=== PATIENT | female | born 1990 | race Caucasian/White ===

== ENCOUNTER 2017-05-07 10:39 | Observation (INO) | payer BC, MEDICAID ==
[~2017-05-07] VITALS: Ht 149.9 cm; Wt 81.6 kg
[2017-05-07 12:38] VITALS: BP_SYST 121
[2017-05-07 12:40] VITALS: BP_SYST 121
== END 2017-05-07 12:20 | disposition home or self-care (01) ==
LOC: SPU 10:39
PROVIDERS: ADMIT Specialist; ATTEND Specialist
DX: O26.893 Other specified pregnancy related conditions, third trimester (principal); N89.8 Other specified noninflammatory disorders of vagina; R10.30 Lower abdominal pain, unspecified; Z3A.35 35 weeks gestation of pregnancy
CPT/HCPCS: 76815; G0378; 81002-TC

== ENCOUNTER 2017-05-20 10:55 | Inpatient (IN) | payer BC, MEDICAID ==
[~2017-05-20] VITALS: Ht 149.9 cm; Wt 85.7 kg
[2017-05-20] MEDS ORDERED: LR 1,000 ML IV SCH (12:29)
[2017-05-20] MEDS ORDERED: OXYTOCIN/NORMAL SALINE 1,000 ML IV SCH ×2 (12:29→21:02)
[2017-05-20] MEDS ORDERED: OXYTOCIN/NORMAL SALINE 1,000 ML IV ONE ×2 (13:00→21:02)
[2017-05-20 13:03] LABS: HEMATOCRIT 32.7 % (36-48); HEMOGLOBIN 10.7 g/dL (12.0-16.0); MEAN CORPUSCULAR HEMOGLOBIN 25 pg (27-31); MEAN CORPUSCULAR HGB CONC 33 % (32-36); MEAN CORPUSCULAR VOLUME 76 fL (79.0-98.0); PLATELET COUNT (AUTO) 162 K/uL (130-430); RED BLOOD CELL COUNT(AUTO) 4.33 MIL/uL (4.2-6.2); RED CELL DISTRIBUTION WIDTH 13.6 % (9.0-15.0)
[2017-05-20 13:05] VITALS: BP_SYST 146
[2017-05-20 13:10] LABS: WHITE BLOOD COUNT (AUTO) 10.6 K/uL (4.8-10.8)
[2017-05-20 13:28] LABS: ATYPICAL LYMPHOCYTES % 0 % (0-0); BAND % (MANUAL) 0 % (0-6); BASOPHILS % (MANUAL) 1 % (0-2); EOSINOPHILS % (MANUAL) 0 % (0-7); LYMPHOCYTES % (MANUAL) 22 % (20-46); MONOCYTES % (MANUAL) 6 % (0-11)
[2017-05-20] MEDS: NALBUPHINE HCL 10 MG/ML AMP IVP PRN ×2 (15:01→17:12)
[2017-05-20] MEDS: OXYCODONE/ACETAMINOPHEN 5-325 TABLET PO PRN (20:05)
[2017-05-20] MEDS ORDERED: OXYCODONE/ACETAMINOPHEN 5-325 TABLET ONE ×2 (20:12→20:17)
[2017-05-20] MEDS ORDERED: TEMAZEPAM 15 MG CAPSULE PO PRN (21:00)
[2017-05-20] MEDS ORDERED: DERMOPLAST SPRAY TP PRN (21:15)
[2017-05-20] MEDS ORDERED: SENNOSIDES/DOCUSATE SODIUM 1 TAB TABLET(SENOKOT-S) PO PRN (21:15)
[2017-05-20] MEDS ORDERED: HYDROCORTISONE 0.5%, 28.35 GM TOPICAL CREAM TP PRN (21:15)
[2017-05-20] MEDS ORDERED: LANOLIN 7 GM OINT. TP PRN (21:15)
[2017-05-20] MEDS ORDERED: HYDROcodone/ACETAMIN 5-325 MG TAB (NORCO/ VICODIN) PO PRN (21:15)
[2017-05-20] MEDS ORDERED: GLYCERIN/WITCH HAZEL (TUCKS PADS) TP PRN (21:15)
[2017-05-20] MEDS ORDERED: RHO(D) IMMUNE GLOBULIN/MALTOSE 1500 UNITS/1.3 ML (WINHRO) IM PRN (21:15)
[2017-05-20] MEDS ORDERED: DOCUSATE SODIUM 100 MG CAPSULE PO PRN (21:15)
[2017-05-20] MEDS ORDERED: ANUSOL 1 EA SUPP.RECT (PREPARATION H) RC PRN (21:15)
[2017-05-20] MEDS ORDERED: METHYLERGONOVINE MALEATE 0.2 MG TABLET PO PRN (21:15)
[2017-05-20] MEDS ORDERED: MEASLES,MUMPS&RUBELLA VACC/PF 12500 UNIT/0.5 ML VIAL SUBQ PRN (21:15)
[2017-05-20] MEDS: IBUPROFEN 600 MG TABLET PO SCH (23:32)
[2017-05-21] MEDS: OXYCODONE/ACETAMINOPHEN 5-325 TABLET PO PRN ×3 (02:36→13:45)
[2017-05-21] MEDS: IBUPROFEN 600 MG TABLET PO SCH ×2 (05:42→12:11)
[2017-05-21 07:45] LABS: HEMATOCRIT 29.2 % (36-48); HEMOGLOBIN 9.6 g/dL (12.0-16.0); MEAN CORPUSCULAR HEMOGLOBIN 25 pg (27-31); MEAN CORPUSCULAR HGB CONC 33 % (32-36); MEAN CORPUSCULAR VOLUME 77 fL (79.0-98.0); PLATELET COUNT (AUTO) 159 K/uL (130-430); RED CELL DISTRIBUTION WIDTH 13.8 % (9.0-15.0)
[2017-05-21 07:52] LABS: WHITE BLOOD COUNT (AUTO) 18.9 K/uL (4.8-10.8)
[2017-05-21 09:40] LABS: ATYPICAL LYMPHOCYTES % 0 % (0-0); BAND % (MANUAL) 4 % (0-6); BASOPHILS % (MANUAL) 0 % (0-2); EOSINOPHILS % (MANUAL) 0 % (0-7); LYMPHOCYTES % (MANUAL) 24 % (20-46); MONOCYTES % (MANUAL) 6 % (0-11)
[2017-05-21] MEDS ORDERED: LIDOCAINE PF 1% 30ML(POUR BTL) INJ ONE (14:14)
[2017-05-21] MEDS ORDERED: MINERAL OIL 30 ML UDC PO ONE (14:14)
== END 2017-05-21 14:15 | disposition home or self-care (01) | DRG 775 ==
LOC: SPU 10:55 → UNDODISIN 05-21 14:15
PROVIDERS: ADMIT Specialist; ATTEND Specialist
PROC: 10D07Z6 Extraction of Products of Conception, Vacuum, Via Natural or Artificial Opening (ICD-10-PCS; principal; 2017-05-20)
PROC: 0KQM0ZZ Repair Perineum Muscle, Open Approach (ICD-10-PCS; 2017-05-20)
DX: O42.92 Full-term premature rupture of membranes, unspecified as to length of time between rupture and onset of labor (principal); O70.1 Second degree perineal laceration during delivery; Z37.0 Single live birth; Z3A.38 38 weeks gestation of pregnancy
CPT/HCPCS: 36415; 81002-TC; 85007; 85027; 86592; 86886; 86900; 86901; J2001; J2300; J2590

== ENCOUNTER 2017-08-27 13:41 | Emergency (ER) | payer BC, MEDICAID ==
[~2017-08-27] VITALS: Ht 149.9 cm; Wt 72.6 kg
[2017-08-27 13:49] VITALS: BP_SYST 165
[2017-08-27] MEDS ORDERED: LORazepam 2 MG/ML VIAL (FOR ER USE) IVP ONE (14:15)
[2017-08-27] MEDS ORDERED: ASPIRIN 81 MG TAB.CHEW PO ONE (14:15)
[2017-08-27 14:42] LABS: EOSINOPHILS # (AUTO) 0.1 K/uL (0.0-0.4); EOSINOPHILS % (AUTO) 0.8 % (0.0-4.0); HEMATOCRIT 42.7 % (36-48); HEMOGLOBIN 13.5 g/dL (12.0-16.0); LYMPHOCYTES # (AUTO) 3.5 K/uL (1.0-5.5); LYMPHOCYTES % (AUTO) 35.7 % (20.5-51.5); MEAN CORPUSCULAR HEMOGLOBIN 24 pg (27-31); MEAN CORPUSCULAR HGB CONC 32 % (32-36); MEAN CORPUSCULAR VOLUME 77 fL (79.0-98.0); MONOCYTES # (AUTO) 0.4 K/uL (0.0-1.0); MONOCYTES % (AUTO) 4.3 % (1.7-9.3); PLATELET COUNT (AUTO) 305 K/uL (130-430); RED BLOOD CELL COUNT(AUTO) 5.52 MIL/uL (4.2-6.2); RED CELL DISTRIBUTION WIDTH 14.7 % (9.0-15.0); WHITE BLOOD COUNT (AUTO) 9.8 K/uL (4.8-10.8)
[2017-08-27 14:56] LABS: BASOPHILS # (AUTO) 0.1 K/uL (0.0-0.2); BASOPHILS % (AUTO) 0.7 % (0.0-2.0); NEUTROPHILS # (AUTO) 5.7 K/uL (1.8-7.7); NEUTROPHILS % (AUTO) 58.5 % (40.0-70.0)
[2017-08-27 14:59] LABS: CALCIUM 9.2 mg/dL (8.4-11.0); CREATININE 0.94 mg/dL (0.55-1.30); POTASSIUM 3.3 mmol/L (3.5-5.1)
[2017-08-27] MEDS ORDERED: LORazepam 1 MG TABLET PO ONE (15:00)
[2017-08-27 15:04] LABS: ALBUMIN 3.9 g/dL (3.4-4.8); TOTAL BILIRUBIN 0.1 mg/dL (0.0-1.0)
[2017-08-27 15:23] LABS: BILIRUBIN,URINE NEGATIVE (NEGATIVE); BLOOD, URINE NEGATIVE (NEGATIVE); CLARITY/URINE CLEAR (CLEAR); COLOR,URINE YELLOW (YELLOW); GLUCOSE,URINE NEGATIVE (NEGATIVE); KETONES,URINE NEGATIVE (NEGATIVE); LEUKOCYTE ESTERASE ,URINE NEGATIVE (NEGATIVE); NITRITE, URINE NEGATIVE (NEGATIVE); PH,URINE 6.5 (5.0-8.0); PROTEIN URINE NEGATIVE (NEGATIVE); UROBILINOGEN,URINE 0.2 (0.2-1.0)
[2017-08-27] MEDS ORDERED: POTASSIUM CHLORIDE 20 MEQ TAB.PRT.SR PO ONE (16:15)
[2017-08-27 16:30] VITALS: BP_SYST 113
== END 2017-08-27 16:30 | disposition home or self-care (01) ==
LOC: SED 13:41
DX: F41.9 Anxiety disorder, unspecified (principal); E87.6 Hypokalemia; R03.0 Elevated blood-pressure reading, without diagnosis of hypertension
CPT/HCPCS: 36415; 70450-TC; 71010; 80053; 81003; 81025; 84484; 85025; 93005; 99285

== ENCOUNTER 2021-12-12 18:15 | Emergency (ER) | payer MEDICAID, OTHER, SELFPAY ==
[~2021-12-12] VITALS: Ht 149.9 cm; Wt 72.6 kg
[2021-12-12 18:40] VITALS: BP_SYST 127
== END 2021-12-12 20:10 | disposition left against medical advice (07) ==
LOC: SED 18:15
DX: M25.571 Pain in right ankle and joints of right foot (principal); Z53.21 Procedure and treatment not carried out due to patient leaving prior to being seen by health care provider

== ENCOUNTER 2022-05-21 15:50 | Emergency (ER) | payer MEDICAID ==
[~2022-05-21] VITALS: Ht 147.3 cm; Wt 68.0 kg
[2022-05-21 16:05] VITALS: BP_SYST 123
--- NOTE | 2022-05-21 16:14 | NUR ---
Patient triaged and placed in waiting room. VSS and patient appears in no acute distress at this time. Accompanied by SELF, awaiting available bed, and MD notified of need for MSE.
--- NOTE | 2022-05-21 16:30 | NUR ---
Patient to ER bed TRIAGE to gown for evaluation. Side rails up.
--- NOTE | 2022-05-21 16:32 | NUR ---
ER at bedside examining patient.
--- NOTE | 2022-05-21 16:35 | NUR ---
Urine specimen collected AND SENT TO LAB.
[2022-05-21] MEDS ORDERED: NITR-85 PO (16:47)
[2022-05-21] MEDS ORDERED: PHEN-890 PO (16:47)
[2022-05-21 16:50] LABS: BILIRUBIN,URINE NEGATIVE (NEGATIVE); BLOOD, URINE 3+ (NEGATIVE); COLOR,URINE YELLOW (YELLOW); GLUCOSE,URINE NEGATIVE (NEGATIVE); KETONES,URINE NEGATIVE (NEGATIVE); LEUKOCYTE ESTERASE ,URINE 3+ (NEGATIVE); NITRITE, URINE NEGATIVE (NEGATIVE); PROTEIN URINE NEGATIVE (NEGATIVE); UROBILINOGEN,URINE 0.2 (0.2-1.0)
--- NOTE | 2022-05-21 17:00 | NUR ---
Patient given written and verbal discharge instructions and verbalizes understanding. ER MD discussed with patient the results and treatment provided. Patient in stable condition. ID arm band removed. Rx of PYRIDIUM,BACTRIM DS given. Patient educated on pain management and to follow up with PMD. Pain Scale 2. Opportunity for questions provided and answered. Medication side effect fact sheet provided.
[2022-05-21 17:22] LABS: CLARITY/URINE HAZY (CLEAR)
[2022-05-21 17:24] LABS: BACTERIA,URINE FEW /HPF (None Seen); MUCUS,URINE None Seen /LPF (None Seen); RBC,URINE 20-50 /HPF (0-3); WBC,URINE 50-80 /HPF (0-3)
== END 2022-05-21 17:00 | disposition home or self-care (01) ==
LOC: SED 15:50
DX: N39.0 Urinary tract infection, site not specified (principal); R30.0 Dysuria; R35.0 Frequency of micturition; Z79.899 Other long term (current) drug therapy
CPT/HCPCS: 81000; 81025; 87086; 99283

== ENCOUNTER 2023-07-11 10:17 | Emergency (ER) | payer MEDICAID ==
[~2023-07-11] VITALS: Ht 147.3 cm; Wt 74.8 kg
[~2023-07-11 10:17] MED LIST: NITR-85 PO; PHEN-890 PO
[2023-07-11 10:25] VITALS: BP_SYST 128; PULSE 89; RESP 18; TEMP 97.1; O2SAT 98
[2023-07-11 11:00] LABS: BILIRUBIN,URINE NEGATIVE (NEGATIVE); BLOOD, URINE NEGATIVE (NEGATIVE); CLARITY/URINE CLEAR (CLEAR); COLOR,URINE YELLOW (YELLOW); GLUCOSE,URINE NEGATIVE (NEGATIVE); KETONES,URINE NEGATIVE (NEGATIVE); LEUKOCYTE ESTERASE ,URINE NEGATIVE (NEGATIVE); NITRITE, URINE NEGATIVE (NEGATIVE); PROTEIN URINE NEGATIVE (NEGATIVE); UROBILINOGEN,URINE 0.2 (0.2-1.0)
[2023-07-11 11:16] LABS: BASOPHILS # (AUTO) 0.1 K/uL (0.0-0.2); BASOPHILS % (AUTO) 1.1 % (0.0-2.0); EOSINOPHILS # (AUTO) 0.1 K/uL (0.0-0.4); EOSINOPHILS % (AUTO) 1.2 % (0.0-4.0); HEMATOCRIT 40.4 % (36-48); HEMOGLOBIN 13.6 g/dL (12.0-16.0); LYMPHOCYTES # (AUTO) 3.5 K/uL (1.0-5.5); LYMPHOCYTES % (AUTO) 36.8 % (20.5-51.5); MEAN CORPUSCULAR HEMOGLOBIN 28 pg (27-31); MEAN CORPUSCULAR HGB CONC 34 % (32-36); MEAN CORPUSCULAR VOLUME 85 fL (79.0-98.0); MONOCYTES # (AUTO) 0.5 K/uL (0.0-1.0); MONOCYTES % (AUTO) 5.2 % (1.7-9.3); NEUTROPHILS # (AUTO) 5.3 K/uL (1.8-7.7); NEUTROPHILS % (AUTO) 55.7 % (40.0-70.0); PLATELET COUNT (AUTO) 271 K/uL (130-430); RED BLOOD CELL COUNT(AUTO) 4.78 MIL/uL (4.2-6.2); WHITE BLOOD COUNT (AUTO) 9.4 K/uL (4.8-10.8)
[2023-07-11 11:52] LABS: CALCIUM 8.9 mg/dL (8.4-11.0); CREATININE 0.58 mg/dL (0.55-1.30); POTASSIUM 3.9 mmol/L (3.5-5.1)
[2023-07-11 12:02] LABS: ALBUMIN 3.3 g/dL (3.4-4.8); TOTAL BILIRUBIN 0.2 mg/dL (0.0-1.0); TOTAL PROTEIN, SERUM 7.2 g/dL (6.4-8.3)
[2023-07-11 12:26] VITALS: BP_SYST 125; PULSE 69; RESP 16; TEMP 97.3; O2SAT 99
== END 2023-07-11 12:29 | disposition home or self-care (01) ==
LOC: SED 10:17
DX: M54.50 Low back pain, unspecified (principal); R30.0 Dysuria; Z79.899 Other long term (current) drug therapy
CPT/HCPCS: 36415; 80053; 81003; 81025; 84702; 85025; 99283